=== PATIENT | female | born 1975 | race Caucasian/White ===

== ENCOUNTER → 2022-02-19 | Outpatient (CLI) | payer OTHER | LOC: WCC 13:00 | DX: S81.802A Unspecified open wound, left lower leg, initial encounter (principal); M79.662 Pain in left lower leg; J44.9 Chronic obstructive pulmonary disease, unspecified; G40.89 Other seizures; Z79.899 Other long term (current) drug therapy; F17.210 Nicotine dependence, cigarettes, uncomplicated; W26.8XXA Contact with other sharp object(s), not elsewhere classified, initial encounter ==

== ENCOUNTER → 2022-02-26 | Outpatient (CLI) | payer OTHER | LOC: WCC 07:49 | DX: S81.802A Unspecified open wound, left lower leg, initial encounter (principal); M79.662 Pain in left lower leg; J44.9 Chronic obstructive pulmonary disease, unspecified; G40.89 Other seizures; M19.90 Unspecified osteoarthritis, unspecified site; W22.8XXA Striking against or struck by other objects, initial encounter ==